=== PATIENT | female | born 1975 | race African-American/Black ===

== ENCOUNTER 2019-07-22 01:32 | Emergency (ER) | payer OTHER, SELFPAY ==
[2019-07-22] MEDS ORDERED: cloNIDine 0.1 MG TAB ONE (01:58)
[2019-07-22] MEDS ORDERED: Amlodipine 5 MG TAB ONE (02:30)
[2019-07-22] MEDS ORDERED: Atenolol 25 MG TAB PO SCH (02:45)
[2019-07-22] MEDS ORDERED: Losartan 25 MG TAB PO SCH (02:45)
== END 2019-07-22 03:38 | disposition home or self-care (01) ==
LOC: ERS 01:32
DX: R04.0 Epistaxis (principal); I10 Essential (primary) hypertension
CPT/HCPCS: 99283